=== PATIENT | male | born 1940 | race Caucasian/White ===

== ENCOUNTER 2019-04-23 08:27 | Outpatient (CLI) | payer MEDICARE, SELFPAY ==
[2019-04-23 09:10] LABS: Anion Gap 15.9 mmol/L (7-16); Blood Urea Nitrogen 15 mg/dL (7-18); Calcium 8.7 mg/dL (8.5-10.1); Carbon Dioxide 28 mmol/L (21-32); Chloride 104 mmol/L (98-108); Estimated Glomerular Filt Rate 57; Glucose 114 mg/dL (70-99); Osmolality Calculated 299 mOsm/kg (285-295); Potassium 3.9 mmol/L (3.5-5.1); Sodium 144 mmol/L (136-145)
== END 2019-04-23 08:28 | disposition home or self-care (01) ==
LOC: CHSLAB 08:30
PROVIDERS: PCP Internal Medicine
DX: I25.10 Atherosclerotic heart disease of native coronary artery without angina pectoris (principal)
CPT/HCPCS: 36415; 80048

== ENCOUNTER 2019-08-16 08:00 | Observation (INO) | payer MEDICARE, OTHER, SELFPAY ==
[2019-08-16] VITALS (10 sets, daily range): BP systolic 135–178; BP diastolic 70–86; PULSE 60–72; RESP 18–20; TEMP 36.4–36.7; O2SAT 96–100; BMI 32.1
--- NOTE | ~2019-08-16 | XR_ITS ---
XR chest 2V 08/16/2019 08:29 Indication: Chest pain. Nausea. Dyspnea. Procedure: 2 view chest Comparison: Comparison to multiple prior studies sequentially, with oldest reviewed study dated 07/2009. Findings: Status post median sternotomy for CABG. There is a prosthetic heart valve. Pacemaker leads in expected position. There are right basilar infiltrates. Small right pleural effusion versus pleura l thickening. No edema or pneumothorax. No acute osseous abnormality. Impression: 1: Linear right basilar infiltrates may represent atelectasis/scarring or less likely pneumonia. 2: Small right pleural effusion versus pleural thickening. Reviewed, dictated and finalized at location A. Impression: 1: Linear right basilar infiltrates may represent atelectasis/scarring or less likely pneumonia. 2: Small right pleural effusion versus pleural thickening.
--- NOTE | 2019-08-16 08:05 | ECG_ITS ---
Measurements Intervals [place] Rate: 63 P: 13 IL: 304 QRS: -33 QRSD: 136 T: 7 QT: 430 QTc: 443 Interpretive Statements SINUS RHYTHM WITH FIRST DEGREE AV BLOCK INTRAVENTRICULAR CONDUCTION DELAY POSSIBLE LEFT VENTRICULAR HYPERTROPHY BORDERLINE R WAVE PROGRESSION, ANTERIOR LEADS MINIMAL Q WAVES- HIGH LATERAL LEADS CONSIDER INFERIOR INFARCT, AGE INDETERMINATE ABNORMAL ECG Electronically Signed On 08-16-2019 8:29:43 CDT by Tyrone Perez D.O.
--- NOTE | 2019-08-16 08:05 | ED.CHESTPAIN ---
HPI - Chest Pain General Chief Complaint: Chest Pain Stated Complaint: AMBULANCE Time Seen by Provider: 08/16/19 08:05 Source: patient, EMS and RN notes reviewed Mode of arrival: EMS Limitations: no limitations History of Present Illness HPI narrative: patient was sitting at home this morning and had an episode of chest tightness. Seven very significant across his entire chest. Made him nauseous with some mild diaphoresis and shortness of breath. After this persisted for 30 minutes he decided to call an ambulance. The ambulance arrived his symptoms were diminishing. On arrival to the hospital symptoms were gone. MD complaint: chest heaviness Pertinent past history: coronary artery disease and [employer] Onset (ago): minute(s) (40) Timing of current episode: episodic Prior episodes: Yes Onset: during rest Pain location: substernal Pain radiation: none Severity: moderate Quality: tightness Relieving factors: nothing Exacerbating factors: nothing Associated symptoms: nausea, diaphoresis and dyspnea Treatment prior to arrival: none Risk Factors Coronary artery disease risk factors: hyperlipidemia and hypertension Related Data Home Medications Medication Instructions Recorded Confirmed acetaminophen [Tylenol Extra 500 mg PO Q6H PRN 08/16/19 08/16/19 Strength] apixaban [Eliquis] 5 mg PO BID 08/16/19 08/16/19 aspirin 81 mg PO DAILY 08/16/19 08/16/19 atorvastatin 40 mg PO HS 08/16/19 08/16/19 cetirizine 10 mg PO DAILY 08/16/19 08/16/19 losartan 50 mg PO DAILY 08/16/19 08/16/19 metoprolol succinate 25 mg PO DAILY 08/16/19 08/16/19 montelukast 10 mg PO DAILY 08/16/19 08/16/19 multivitamin [Multiple Vitamins] 1 tablet PO DAILY 08/16/19 08/16/19 omeprazole 20 mg PO DAILY 08/16/19 08/16/19 Allergies Allergy/AdvReac Type Severity Reaction Status Date / Time amoxicillin [From Augmentin] Allergy Unknown Verified 08/16/19 08:22 clavulanic acid Allergy Unknown Verified 08/16/19 08:22 [From Augmentin] clopidogrel Allergy Hives Verified 08/16/19 08:22 Penicillins Allergy Unknown Verified 08/16/19 08:22 prasugrel Allergy Hives Verified 08/16/19 08:22 Review of Systems Constitutional: Constitutional: Denies chills, Denies fever(s) and Denies weakness Eyes: Eyes: Reports no additional eye complaints ENT: Reports system reviewed and no additional complaints, except as documented Cardiovascular: Cardiovascular: Reports as per HPI Respiratory: Respiratory: Denies cough and Denies wheezing Gastrointestinal: Gastrointestinal: Denies heartburn, Denies diarrhea and Denies vomiting Genitourinary: Genitourinary: Reports no additional male genitourinary complaints Musculoskeletal: Musculoskeletal: Reports no additional musculoskeletal complaints Integumentary/Breasts: Skin/Breast: Reports system reviewed and no additional complaints, except as docu Neurologic: Reports system reviewed and no additional complaints, except as documented Psychiatric: Psychiatric: Reports no additional psychiatric complaints Endocrine: Endocrine: Reports no additional endocrine complaints [facility] Past Medical History Medical History (Updated 08/16/19 @ 12:20 by TOM Moseley-C) Atrial fibrillation BPH loc w urin obs/LUTS Carotid artery stenosis Coronary artery disease GERD (gastroesophageal reflux disease) Hyperlipidemia Hypertension Osteoarthritis Surgical History Surgical History (Updated 08/16/19 @ 08:31 by Reno Olguin MD) Aortic valve replaced Pacemaker Social History Social History (Updated 08/16/19 @ 08:39 by Reno Olguin MD) Smoking status: Never smoker Alcohol intake: former Drinks per week: 1 Substance use: never Substance use type: does not use Gender identity (if verbalized by the patient): Male Sexual Orientation (if Verbalized by the Patient): Straight or Heterosexual Spiritual care concerns: No Exam Const: General: healthy appearing, no acute distress and alert Nutritional A
[2019-08-16] MEDS: ASPIRIN 81 MG CHEWABLE TABLET 324 MG PO (08:16)
[2019-08-16 08:25] LABS: Basophils Absolute Auto 0.02 K/mm3 (0.00-0.10); Basophils Percent Auto 0.4 % (0.0-1.0); Eosinophils Percent Auto 1.9 % (1.0-6.0); Hematocrit 45.1 % (37.0-46.0); Hemoglobin 15.7 g/dL (12.4-15.3); Immature Granulocyte Absolute 0.02 K/mm3 (0.00-0.00); Immature Granulocyte Percent A 0.4 % (0.0-0.0); Lymphocytes Absolute Auto 0.84 K/mm3 (1.10-4.50); Mean Corpuscular HGB Conc 34.8 g/dL (32.0-36.0); Mean Corpuscular Volume 91.9 fL (78.0-102.0); Mean Platelet Volume 10.1 fl (8.7-11.0); Monocytes Absolute Auto 0.29 K/mm3 (0.10-0.90); Monocytes Percent Auto 5.5 % (2.0-11.0); Neutrophils Percent Auto 75.8 % (50.0-70.0); Platelet Count Result 124 K/mm3 (150-420); Red Blood Count 4.91 M/mm3 (4.70-6.10); Red Cell Distribution Width 13.6 % (11.6-14.4); White Blood Count 5.3 K/mm3 (4.8-10.8)
[2019-08-16 08:39] LABS: INR 1.1; Prothrombin Time 11.4 Seconds (9.64-11.0)
[2019-08-16 08:43] LABS: Alanine Aminotransferase 56 U/L (16-63); Albumin Level 3.7 g/dL (3.4-5.0); Alkaline Phosphatase 80 U/L (46-116); Anion Gap 11.2 mmol/L (7-16); Aspartate Amino Transferase 67 U/L (15-37); Bilirubin,Total 0.8 mg/dL (0.00-1.00); Blood Urea Nitrogen 15 mg/dL (7-18); Calcium 8.6 mg/dL (8.5-10.1); Carbon Dioxide 30 mmol/L (21-32); Chloride 106 mmol/L (98-108); Estimated CRCL calculation 63 ml/min; Estimated Glomerular Filt Rate > 60; Glucose 133 mg/dL (70-99); Osmolality Calculated 298 mOsm/kg (285-295); Potassium 4.2 mmol/L (3.5-5.1); Sodium 143 mmol/L (136-145)
[2019-08-16 08:45] LABS: CRP 0.8 mg/dL (0.0-0.9); Troponin I 0.03 ng/mL (0.00-0.056)
--- NOTE | 2019-08-16 08:51 | PC.NURSE ---
Pt. resting, no c/o, ERP wishes to speak c pts. movie shot camera operator Dr. Zain Burgess, movie shot camera operator at [place]. Call placed to cardiology office for Dr. Burgess.
--- NOTE | 2019-08-16 09:07 | PC.NURSE ---
Awaiting call back from Oncall cardio Dr. Crespo at [place].
--- NOTE | 2019-08-16 09:24 | PC.NURSE ---
ERP spoke c Dr. Crespo, then spoke c pt. Orders to place for obs. and more tests, transfer then if needed. Pt. agreeable to plan.
--- NOTE | 2019-08-16 11:51 | PM.IMHP ---
H&P: HPI History of Present Illness Chief complaint: chest tightness <ALEXX Moseley - Last Filed: 08/16/19 12:28> Narrative: Rufus Cook is a 79 year old male That presented to the ED today complaining of chest pain. Patient has a past medical history of AFib, BPH,GERD coronary artery stenosis, coronary artery disease, hyperlipidemia, hypertension ,osteoporosis, pacemaker and history aortic valve replacement. according to patient while eating breakfast this morning he started experiencing chest pain/ chest discomfort he also became short of breath, diaphoretic and nauseated. he also noted it only lasted for 30 minutes. EMS was called, on their arrival his symptoms had resolved. he does see a electric motor repairer at [facility], - [phone]. patient has not had any chest pain since arrival to the ED. our ED doctor, Dr. Fernandez contacted his electric motor repairer at [facility]. His electric motor repairer gave the patient the option of transferring to [place] or remain here at this facility and rule out a NV. patient chose to remain here for observation patient noted that he has not ever experienced this before. He also noted that he has nitro pills that he has never used, he believes that they are in [place] purse[place] [address], 60, 18, 97.7 and 96% RA.patient troponin was negative. EKG indicated sinus rhythm with first-degree AV block, his chest x-ray indicated Linear right basilar infiltrates may represent atelectasis/scarring or less likely pneumonia. his CRP was within limits. patient will remain overnight with repeat labs and the EKG to rule out a NV. he is being admitted for chest pain, he will be in observation overnight. if night is uneventful patient discharged tomorrow. Patient able to tolerate all meals , ambulate at baseline. at this time atient denies SOB, CP, palpitation, extremity numbness, lightheadness, dizziness, constipation, diarrhea, chills or fever. <ALEXX Moseley - Last Filed: 08/16/19 12:28> Review of Systems Constitutional: Constitutional: Denies chills, Denies fever(s), Denies headache(s), Denies lethargy and Reports other ( diaphoretic) <MARSHA MoseleyC - Last Filed: 08/16/19 12:28> Cardiovascular: Cardiovascular: Reports chest pain, Reports chest pain at rest, Reports chest pain with activity, Denies lightheadedness and Reports dyspnea <[facility] - Last Filed: 08/16/19 12:28> Respiratory: Respiratory: Denies cough, Denies pain with cough and Reports dyspnea <[facility] - Last Filed: 08/16/19 12:28> Gastrointestinal: Gastrointestinal: Denies abdominal pain, Denies heartburn, Denies diarrhea, Denies loose stools, Reports nausea and Denies vomiting <[facility] - Last Filed: 08/16/19 12:28> Genitourinary: Genitourinary: Reports no additional male genitourinary complaints and Denies hematuria <Kanwal Mace [facility] - Last Filed: 08/16/19 12:28> Musculoskeletal: Musculoskeletal: Reports no additional musculoskeletal complaints, Denies numbness, Denies radiating pain into limb and Denies tingling <Kanwal Mace [facility] Last Filed: 08/16/19 12:28> Integumentary/Breasts: Skin/Breast: Reports system reviewed and no additional complaints, except as docu <Kanwal Mace [facility] - Last Filed: 08/16/19 12:28> Neurologic: Denies confusion, Denies vertigo, Denies dizziness, Denies syncope, Denies headache(s), Denies lack of coordination and Denies loss of vision <[facility] - Last Filed: 08/16/19 12:28> Psychiatric: Psychiatric: Reports no additional psychiatric complaints, Denies confusion, Denies depression and Denies memory loss <[facility] - Last Filed: 08/16/19 12:28> Endocrine: Endocrine: Reports no additional endocrine complaints <Kanwal Mace [facility] - Last Filed: 08/16/19 12:28> Hematologic/Lymphatic: Hematologic/Lymphatic: Reports no additional hematologic/lymphatic complaints
[2019-08-16 12:41] LABS: Cholesterol 82 mg/dL (0-200); HDL Direct 27 mg/dL (40-60); LDL Cholesterol Calculated 32 mg/dL (<130); Triglycerides 113 mg/dL (0-150)
[2019-08-16 14:55] LABS: Troponin I < 0.02 ng/mL (0.00-0.056)
[2019-08-16 17:40] LABS: Troponin I < 0.02 ng/mL (0.00-0.056)
[2019-08-16] MEDS: ATORVASTATIN 40 MG TABLET PO (21:04)
[2019-08-16] MEDS: MELATONIN 5 MG TABLET PO (21:04)
[2019-08-17] VITALS: BP 136/60; PULSE 60; RESP 20; TEMP 36.4; O2SAT 95
--- NOTE | 2019-08-17 00:12 | PC.NURSE ---
Telemetry continues. Denied chest pain.
[2019-08-17 04:00] VITALS: PULSE 60
[2019-08-17 04:28] VITALS: BP 147/76; PULSE 60; RESP 20; TEMP 36.2; O2SAT 95
--- NOTE | 2019-08-17 04:30 | PC.NURSE ---
Telemetry continues. Denies chest pain.
[2019-08-17 05:25] LABS: Hematocrit 43.6 % (37.0-46.0); Hemoglobin 15.2 g/dL (12.4-15.3); Mean Corpuscular HGB Conc 34.9 g/dL (32.0-36.0); Mean Corpuscular Volume 91.8 fL (78.0-102.0); Mean Platelet Volume 10.5 fl (8.7-11.0); Platelet Count Result 123 K/mm3 (150-420); Red Blood Count 4.75 M/mm3 (4.70-6.10); Red Cell Distribution Width 13.7 % (11.6-14.4); White Blood Count 5.8 K/mm3 (4.8-10.8)
[2019-08-17 05:42] LABS: Alanine Aminotransferase 57 U/L (16-63); Albumin Level 3.5 g/dL (3.4-5.0); Alkaline Phosphatase 65 U/L (46-116); Anion Gap 10.2 mmol/L (7-16); Aspartate Amino Transferase 38 U/L (15-37); Bilirubin,Total 0.9 mg/dL (0.00-1.00); Blood Urea Nitrogen 13 mg/dL (7-18); Calcium 8.7 mg/dL (8.5-10.1); Carbon Dioxide 29 mmol/L (21-32); Chloride 106 mmol/L (98-108); Estimated CRCL calculation 66 ml/min; Estimated Glomerular Filt Rate > 60; Glucose 103 mg/dL (70-99); Magnesium 1.9 mg/dL (1.8-2.4); Osmolality Calculated 292 mOsm/kg (285-295); Potassium 4.2 mmol/L (3.5-5.1); Sodium 141 mmol/L (136-145); Total Protein 6.4 g/dL (6.4-8.2)
[2019-08-17 08:00] VITALS: BP 166/74; PULSE 60; PULSE 64; RESP 18; TEMP 36.6; O2SAT 94
--- NOTE | 2019-08-17 08:00 | ECG_ITS ---
Measurements Intervals [place] Rate: 59 P: 119 SD: 357 QRS: -30 QRSD: 123 T: -7 QT: 452 QTc: 451 Interpretive Statements ELECTRONIC ATRIAL PACEMAKER MINIMAL Q WAVES- HIGH LATERAL LEADS INFERIOR INFARCT, AGE INDETERMINATE ABNORMAL ECG Electronically Signed On 08-17-2019 8:34:25 CDT by Tyrone Perez D.O.
[2019-08-17] MEDS: LORATADINE 10 MG TABLET PO (09:07)
[2019-08-17] MEDS: ASPIRIN 81 MG CHEWABLE TABLET PO (09:07)
[2019-08-17 09:08] VITALS: PULSE 60
[2019-08-17] MEDS: MULTIVITAMINS THERAPEUTIC TAB (*BKC) 1 TABLET PO (09:08)
[2019-08-17] MEDS: LOSARTAN POTASSIUM 50 MG TABLET PO (09:08)
[2019-08-17] MEDS: MONTELUKAST SODIUM 10 MG TABLET PO (09:08)
[2019-08-17] MEDS: PANTOPRAZOLE 40 MG TABLET PO (09:08)
[2019-08-17] MEDS: METOPROLOL SUCCINATE EXT REL 25 MG TABCR PO (09:08)
--- NOTE | 2019-08-17 09:59 | PC.NURSE ---
Patient denies pain, nausea, dizziness, chest pressure and tightness.
--- NOTE | 2019-08-17 10:52 | P.DS_ITS ---
DS: Admitting Diagnosis Admitting Diagnosis Admitting Diagnosis: Chest pain, unspecified <Kanwal MaceALEXX - Last Filed: 08/17/19 10:57> DS: Discharge Diagnosis Discharge Diagnosis (1) Chest pain: Qualifiers: Chest pain type: unspecified Qualified Code(s): R07.9 - C hest pain, unspecified <Kanwal MaceALEXX - Last Filed: 08/17/19 10:57> Code(s): R07.9 - Chest pain, unspecified <Kanwal MaceALEXX - Last Filed: 08/17/19 10:57> Status: Acute <Kanwal MaceTOMCecilioEarnestine - Last Filed: 08/17/19 10:57> Assessment and Plan: * not believed to be cardiac related * resolved * troponin negative x3 * EKG indicates sinus rhythm with first-degree block, repeat EKG electronic atrial pacemaker * will discharge patient with prescription of nitro and instructions * patient sees cardiology at [facility] kai Bartholomew consulted patient's seat cover installer. seat cover installer office will call patient to schedule an appoint on appointment for possible repeat stress test or cardiac catheterization * chest x-ray indicates Linear right basilar infiltrates may represent atelectasis/scarring or less likely pneumonia and Small right pleural effusion versus pleural thickening. * pacemaker to the left chest <Stephenchris BryanALEXX Minor - Last Filed: 08/17/19 10:57> (2) Atrial fibrillation: Code(s): I48.91 - Unspecified atrial fibrillation <Stephenchris BryanALEXX Minor - Last Filed: 08/17/19 10:57> Status: Acute <Kanwal AdamsALEXX Minor - Last Filed: 08/17/19 10:57> Assessment and Plan: * controlled, * continue Eliquis and metoprolol * patient seat cover installer consulted <ALEXX Moseley - Last Filed: 08/17/19 10:57> (3) Coronary artery disease: Code(s): I25.10 - Atherosclerotic heart disease of [place] coronary artery without angina pectoris <ALEXX Moseley - Last Filed: 08/17/19 10:57> Status: Acute <ALEXX Moseley - Last Filed: 08/17/19 10:57> Assessment and Plan: * continue statins <ALEXX Moseley - Last Filed: 08/17/19 10:57> (4) Hypertension: Code(s): I10 - Essential (primary) hypertension <MARSHA MoseleyC - Last Filed: 08/17/19 10:57> Status: Acute <ALEXX Moseley - Last Filed: 08/17/19 10:57> Assessment and Plan: * blood pressure is stable * continue losartan metoprolol <TOM Moseley-Earnestine - Last Filed: 08/17/19 10:57> (5) Hyperlipidemia: Code(s): E78.5 - Hyperlipidemia, unspecified <ALEXX Moseley - Last Filed: 08/17/19 10:57> Status: Acute <ALEXX Moseley - Last Filed: 08/17/19 10:57> Assessment and Plan: * continue statins <MARSHA MoseleyC - Last Filed: 08/17/19 10:57> (6) GERD (gastroesophageal reflux disease): Code(s): K21.9 - Gastro-esophageal reflux disease without esophagitis <ALEXX Moseley - Last Filed: 08/17/19 10:57> Status: Acute <ALEXX Moseley - Last Filed: 08/17/19 10:57> Assessment and Plan: * started Protonix <ALEXX Moseley - Last Filed: 08/17/19 10:57> DS: Summary Hospital Course Hospital Course: H&P from 08/16/2019 Rufus Cook is a 79 year old male That presented to the ED today complaining of chest pain. Patient has a past medical history of AFib, BPH,GERD coronary artery stenosis, coronary artery disease, hyperlipidemia, hypertension ,osteoporosis, pacemaker and history aortic valve re
--- NOTE | 2019-08-17 10:52 | PM.DS ---
DS: Admitting Diagnosis Admitting Diagnosis Admitting Diagnosis: Chest pain, unspecified <ALEXX Moseley - Last Filed: 08/17/19 10:57> DS: Discharge Diagnosis Discharge Diagnosis (1) Chest pain: Qualifiers: Chest pain type: unspecified Qualified Code(s): R07.9 - Chest pain, unspecified <Stephenchris BryanALEXX Minor - Last Filed: 08/17/19 10:57> Code(s): R07.9 - Chest pain, unspecified <ALEXX Moseley - Last Filed: 08/17/19 10:57> Status: Acute <Kanwal BryanALEXX Minor - Last Filed: 08/17/19 10:57> Assessment and Plan: not believed to be cardiac related resolved troponin negative x3 EKG indicates sinus rhythm with first-degree block, repeat EKG electronic atrial pacemaker will discharge patient with prescription of nitro and instructions patient sees cardiology at [facility]. kai Bartholomew consulted patient's screwdown operator. screwdown operator office will call patient to schedule an appoint on appointment for possible repeat stress test or cardiac catheterization chest x-ray indicates Linear right basilar infiltrates may represent atelectasis/scarring or less likely pneumonia and Small right pleural effusion versus pleural thickening. pacemaker to the left chest <ALEXX Moseley - Last Filed: 08/17/19 10:57> (2) Atrial fibrillation: Code(s): I48.91 - Unspecified atrial fibrillation <ALEXX Moseley - Last Filed: 08/17/19 10:57> Status: Acute <ALEXX Moseley - Last Filed: 08/17/19 10:57> Assessment and Plan: controlled, continue Eliquis and metoprolol patient screwdown operator consulted <ALEXX Moseley - Last Filed: 08/17/19 10:57> (3) Coronary artery disease: Code(s): I25.10 - Atherosclerotic heart disease of [place] coronary artery without angina pectoris <ALEXX Moseley - Last Filed: 08/17/19 10:57> Status: Acute <ALEXX Moseley - Last Filed: 08/17/19 10:57> Assessment and Plan: continue statins <ALEXX Moseley - Last Filed: 08/17/19 10:57> (4) Hypertension: Code(s): I10 - Essential (primary) hypertension <ALEXX Moseley - Last Filed: 08/17/19 10:57> Status: Acute <ALEXX Moseley - Last Filed: 08/17/19 10:57> Assessment and Plan: blood pressure is stable continue losartan metoprolol <ALEXX Moseley - Last Filed: 08/17/19 10:57> (5) Hyperlipidemia: Code(s): E78.5 - Hyperlipidemia, unspecified <ALEXX Moseley - Last Filed: 08/17/19 10:57> Status: Acute <ALEXX Moseley - Last Filed: 08/17/19 10:57> Assessment and Plan: continue statins <ALEXX Moseley - Last Filed: 08/17/19 10:57> (6) GERD (gastroesophageal reflux disease): Code(s): K21.9 - Gastro-esophageal reflux disease without esophagitis <ALEXX Moseley - Last Filed: 08/17/19 10:57> Status: Acute <ALEXX Moseley - Last Filed: 08/17/19 10:57> Assessment and Plan: started Protonix <ALEXX Moseley - Last Filed: 08/17/19 10:57> DS: Summary Hospital Course Hospital Course: H&P from 08/16/2019 Rufus Cook is a 79 year old male That presented to the ED today complaining of chest pain. Patient has a past medical history of AFib, BPH,GERD coronary artery stenosis, coronary artery disease, hyperlipidemia, hypertension ,osteoporosis, pacemaker and history aortic valve replacement. according to patient while eating breakfast this morning he started experiencing chest pain/ chest discomfort he also became short of breath, diaphoretic and nauseated. he also noted it only lasted for 30 minutes. EMS was called, on their arrival his symptoms had resolved. he does see a screwdown operator at [facility], - [phone]. kishore
--- NOTE | 2019-08-18 08:39 | PM.EVENT ---
Event Note Event Note Event Note: For this patient encounter, I reviewed Kanwal Mace's documentation, treatment plan, and medical decision making; and I had [id number] time with this patient.
== END 2019-08-17 11:59 | disposition home or self-care (01) ==
LOC: CHSED 09:27 → CHS2ND 09:45
PROVIDERS: Nurse Practitioner; Admitting Provider Emergency Medicine; Emergency Provider Emergency Medicine; PCP Internal Medicine; Visit Provider Emergency Medicine
DX: R07.9 Chest pain, unspecified (principal); I25.10 Atherosclerotic heart disease of native coronary artery without angina pectoris; I48.20 Chronic atrial fibrillation, unspecified; K21.9 Gastro-esophageal reflux disease without esophagitis; E78.5 Hyperlipidemia, unspecified; I10 Essential (primary) hypertension; I65.29 Occlusion and stenosis of unspecified carotid artery; N40.1 Benign prostatic hyperplasia with lower urinary tract symptoms; Z95.0 Presence of cardiac pacemaker; Z95.2 Presence of prosthetic heart valve
CPT/HCPCS: 36415; 71046; 80053; 80061; 83735; 84484; 85025; 85027; 85610; 86140; 93005; 99285; A9270; G0378

== ENCOUNTER 2021-02-02 09:44 | Outpatient (CLI) | payer MEDICARE, SELFPAY ==
[2021-02-02 10:50] LABS: Influenza A QL RT-PCR Negative (Negative); Influenza B QL RT-PCR Negative (Negative); SARS-CoV-2 RNA PCR Negative (Negative)
== END 2021-02-02 09:45 | disposition home or self-care (01) ==
LOC: CHSLAB 09:47
PROVIDERS: PCP Internal Medicine; Visit Provider Internal Medicine
DX: J06.9 Acute upper respiratory infection, unspecified (principal); Z20.822 Contact with and (suspected) exposure to COVID-19
CPT/HCPCS: 87502; C9803; U0003; U0005

== ENCOUNTER 2021-07-22 07:51 | Emergency (ER) | payer MEDICARE, OTHER, SELFPAY ==
--- NOTE | ~2021-07-22 | XR_ITS ---
XR chest 1V portable DATE: 07/22/2021 09:01 INDICATION: Cough for 4 days TECHNIQUE: Portable upright AP views on 07/22/2021 at 0902 hours COMPARISON: 08/15/2021 view chest FINDINGS: Chronic discoid change at the right lung base and chronic blunting of the right costophreni c angle. No pulmonary consolidation or pleural effusion or pulmonary vascular congestion or pneumotho rax is detected. There is old pulmonary granulomatous disease. Normal heart size. Left-sided dual-lead pacemaker with leads overlying right atrium and right ventric le. Status post sternotomy. Aortic calcification and mild tortuosity. IMPRESSION: Mild chronic discoid scarring at the right lung base and chronic mild right costophrenic angle blunting No active cardiopulmonary disease is evident Old pulmonary granulomatous disease Status post sternotomy Dual-lead left-sided pacemaker Aortic atherosclerosis Reviewed, dictated and finalized at location A. IMPRESSION: Mild chronic discoid scarring at the right lung base and chronic mi ld right costophrenic angle blunting No active cardiopulmonary disease is evident Old pulmonary granulomatous disease Status post sternotomy Dual-lead left-sided pacemaker Aortic atherosclerosis
[2021-07-22 08:26] VITALS: BP 132/53; PULSE 69; RESP 16; TEMP 36.8; O2SAT 94
[2021-07-22] MEDS: guaiFENesin 12 HR 600 MG TABCR PO (09:17)
[2021-07-22 09:25] LABS: Influenza A QL RT-PCR Negative (Negative); Influenza B QL RT-PCR Negative (Negative); SARS-CoV-2 RNA PCR Negative (Negative)
--- NOTE | 2021-07-22 10:29 | ED.URI ---
HPI - URI/Sore Throat General Chief Complaint: Upper Respiratory Infection Stated Complaint: fever/fatigue/cough/sore throat Time Seen by Provider: 07/22/21 07:55 Source: patient and RN notes reviewed Mode of arrival: ambulatory Limitations: no limitations History of Present Illness MD elicited complaint: fever, cough, sore throat, nasal congestion and sinus pain Onset (ago): day(s) (2) Consistency: constant Severity: mild Pain scale (0-10): 4 Relieving factors: OTC cold medicine Associated symptoms: fever, voice changes, sore throat and cough Related Data Home Medications Medication Instructions Recorded Confirmed acetaminophen 500 mg tablet 500 mg PO Q6H PRN Pain 08/16/19 07/22/21 (Tylenol Extra Strength) apixaban 5 mg tablet (Eliquis) 5 mg PO BID 08/16/19 07/22/21 aspirin 81 mg chewable tablet 81 mg PO DAILY 08/16/19 07/22/21 atorvastatin 40 mg tablet 40 mg PO HS 08/16/19 07/22/21 cetirizine 10 mg tablet 10 mg PO DAILY 08/16/19 07/22/21 losartan 100 mg tablet 50 mg PO DAILY 08/16/19 07/22/21 metoprolol succinate 25 mg 25 mg PO DAILY 08/16/19 07/22/21 tablet,extended release 24 hr montelukast 10 mg tablet 10 mg PO DAILY 08/16/19 07/22/21 multivitamin (Multiple Vitamins 1 tablet PO DAILY 08/16/19 07/22/21 tablet) omeprazole 20 mg capsule,delayed 20 mg PO DAILY 08/16/19 07/22/21 release Allergies Allergy/AdvReac Type Severity Reaction Status Date / Time amoxicillin [From Augmentin] Allergy Hives Verified 07/22/21 08:31 clavulanic acid Allergy Hives Verified 07/22/21 08:31 [From Augmentin] clopidogrel Allergy Hives Verified 07/22/21 08:31 Penicillins Allergy Hives Verified 07/22/21 08:31 prasugrel Allergy Hives Verified 07/22/21 08:31 Review of Systems Review of Systems: All systems reviewed & are unremarkable except as noted in HPI and below Constitutional: Constitutional: Reports no additional constitutional complaints Eyes: Eyes: Reports no additional eye complaints ENT: Reports system reviewed and no additional complaints, except as documented Cardiovascular: Cardiovascular: Reports no additional cardiovascular complaints Respiratory: Respiratory: Reports no additional respiratory complaints Gastrointestinal: Gastrointestinal: Reports no additional gastrointestinal complaints Musculoskeletal: Musculoskeletal: Reports no additional musculoskeletal complaints Integumentary/Breasts: Skin/Breast: Reports system reviewed and no additional complaints, except as docu Neurologic: Reports system reviewed and no additional complaints, except as documented Psychiatric: Psychiatric: Reports no additional psychiatric complaints Endocrine: Endocrine: Reports no additional endocrine complaints Hematologic/Lymphatic: Hematologic/Lymphatic: Reports no additional hematologic/lymphatic complaints Allergic/Immunologic: Allergic/Immunologic: Reports no additional allergic/immunologic complaints PMFSH Past Medical History Medical History (Updated 08/13/21 @ 10:45 by Marie Wagner MD) Atrial fibrillation BPH loc w urin obs/LUTS Carotid artery stenosis Coronary artery disease GERD (gastroesophageal reflux disease) Hyperlipidemia Hypertension Osteoarthritis Sinusitis Surgical History Surgical History (Updated 08/16/19 @ 08:31 by Reno Olguin MD) Aortic valve replaced Pacemaker Social History Social History (Updated 08/16/19 @ 08:39 by Reno Olguin MD) Smoking status: Never smoker Alcohol intake: former Drinks per week: 1 Substance use: never Substance use type: does not use Gender identity (if verbalized by the patient): Male Sexual Orientation (if Verbalized by the Patient): Straight or Heterosexual Spiritual care concerns: No Exam Const: General: healthy appearing and no acute distress Nutritional Appearance: well nourished Orientation/consciousness: patient oriented x3 Limitations: no limitations HENMT: Head: normal to inspection Ears: exter
[2021-07-22 10:38] VITALS: BP 129/55; PULSE 79; RESP 17; TEMP 36.9; O2SAT 95
== END 2021-07-22 10:43 | disposition home or self-care (01) ==
PROVIDERS: Emergency Provider Emergency Medicine; PCP Internal Medicine
DX: J06.9 Acute upper respiratory infection, unspecified (principal); J32.9 Chronic sinusitis, unspecified; Z20.822 Contact with and (suspected) exposure to COVID-19; I48.91 Unspecified atrial fibrillation; I25.10 Atherosclerotic heart disease of native coronary artery without angina pectoris; K21.9 Gastro-esophageal reflux disease without esophagitis; E78.5 Hyperlipidemia, unspecified; I10 Essential (primary) hypertension
CPT/HCPCS: 71045; 87081; 87502; 87880; 99283; A9270; C9803; U0003; U0005

== ENCOUNTER 2021-08-13 07:21 | Outpatient (CLI) | payer MEDICARE, OTHER, SELFPAY ==
--- NOTE | ~2021-08-13 | CT_ITS ---
EXAMINATION: CT sinus wo con DATE: 08/13/2021 07:42 INDICATION: Chronic sinusitis. TECHNIQUE: Computed tomography (CT) of the paranasal sinuses was performed without intravenous contra st. The dose-length product was 278.92 mGy-cm. Automated exposure control and iterative reconstructio n technique were employed. COMPARISON: None FINDINGS: There is mild mucosal thickening of the maxillary sinuses. Small mucous retention cyst left maxillary antrum. No air-fluid levels. No mucoperiosteal reaction. Rightward nasal septal deviation. Ostiomeatal units are patent. Mastoids are pneumatized without effusion. Mild intracranial atheroscl erosis. No midline shift. IMPRESSION: 1. Mild maxillary sinus disease. Reviewed, dictated and finalized at location B.
== END 2021-08-13 07:22 | disposition home or self-care (01) ==
LOC: CHSIMG 07:22
PROVIDERS: PCP Internal Medicine; Visit Provider Internal Medicine
DX: J32.9 Chronic sinusitis, unspecified (principal)
CPT/HCPCS: 70486

== ENCOUNTER 2022-05-12 09:04 | Emergency (ER) | payer MEDICARE, OTHER, SELFPAY ==
[2022-05-12] VITALS (47 sets, daily range): BP systolic 106–157; BP diastolic 56–79; PULSE 54–67; RESP 11–34; TEMP 36.3–36.4; O2SAT 93–97
--- NOTE | ~2022-05-12 | CT_ITS ---
EXAMINATION: CTA neck DATE: 05/12/2022 11:04 INDICATION: Near syncope. TECHNIQUE: Computed tomographic angiography (CTA) of the neck was performed with 100 mL Omnipaque-350 intravenous contrast. Automated exposure control and iterative reconstruction technique were employe d. The dose-length product was 691.39 mGy-cm. Maximum intensity projection 3D-reconstructions were cr eated by the technologist on a separate workstation. COMPARISON: None. FINDINGS: There is mild atelectasis in the lungs. Calcified left hilar lymph nodes are consistent wit h old granulomatous disease. In left posterior neck, there is a 3.4 x 1.3 cm mass of fat with eccentr ic area fat stranding. There is severe stenosis of proximal right vertebral artery and moderate steno sis of proximal left vertebral artery. The vertebral arteries are codominant. There is plaque in prox imal right internal carotid artery. There is 70% stenosis of the proximal right internal carotid remberto ry relative to normal distal artery lumen diameter (NASCET criteria). There is irregularity of the po sterior medial wall of left common carotid artery. There is hematoma around the left common carotid a rtery. There is a stent in left common carotid artery and internal carotid artery. There is crimping of the stent with narrowing of the lumen to 1.4 x 0.7 mm. There are no pathologically enlarged lymph nodes. Partially visualized is a left chest pacer. There is severe cervical spondylosis. IMPRESSION: 1. Injury of posteromedial wall of left common carotid artery with surrounding hematoma. 2. Stent in left common carotid artery and internal carotid artery with crimping of the stent with anjelica men severely narrowed to 1.4 x 0.7 mm. 3. 70% stenosis of the proximal right internal carotid artery relative to normal distal artery lumen diameter (NASCET criteria). 4. Severe stenosis of proximal right vertebral artery. 5. Moderate stenosis of proximal left vertebral artery. 6. 3.4 cm mass of fat in left posterior neck with fat stranding. 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 Reviewed, dictated and finalized at location A. O LEAD IMPRESSION: 1. Injury of posteromedial wall of left common carotid artery with surrounding hematoma. 2. Stent in left common carotid artery and internal carotid artery with crimpin g of the stent with lumen severely narrowed to 1.4 x 0.7 mm. 3. 70% stenosis of the proximal right internal carotid artery relative to norm al distal artery lumen diameter (NASCET criteria). 4. Severe stenosis of proximal right vertebral artery. 5. Moderate stenosis of proximal left vertebral artery. 6. 3.4 cm mass of fat in left posterior neck with fat stranding. This finding i s most likely a lipoma with inflammation, but liposarcoma cannot be excluded.
--- NOTE | 2022-05-12 09:08 | ED.GENADULT ---
HPI - General Adult General Chief complaint: Dizziness Stated complaint: dizzyness, feeling faint with head pressure Time Seen by Provider: 05/12/22 09:07 History of Present Illness HPI narrative: Ed is an 82M with a PMH of GERD, CAD, afib, HTN , OA and carotid artery stenosis s/p surgery a week ago that came in after an episode of near syncope. He got up from a chair and took a couple steps when he became lightheaded, grabbed a chair and went down. He did not lose consciousness or fall. He also denies palpitations, dyspnea and chest pain. Related Data Home Medications Medication Instructions Recorded Confirmed acetaminophen 500 mg tablet 500 mg PO Q6H PRN Pain 08/16/19 05/12/22 (Tylenol Extra Strength) apixaban 5 mg tablet (Eliquis) 5 mg PO BID 08/16/19 05/12/22 atorvastatin 40 mg tablet 40 mg PO HS 08/16/19 05/12/22 cetirizine 10 mg tablet (Zyrtec) 10 mg PO DAILY 08/16/19 05/12/22 metoprolol succinate 25 mg 25 mg PO BID 08/16/19 05/12/22 tablet,extended release 24 hr montelukast 10 mg tablet 10 mg PO DAILY 08/16/19 05/12/22 multivitamin (Multiple Vitamins 1 tablet PO DAILY 08/16/19 05/12/22 tablet) omeprazole 20 mg capsule,delayed 20 mg PO DAILY 08/16/19 05/12/22 release escitalopram oxalate 10 mg tablet 10 mg PO DAILY 05/12/22 05/12/22 isosorbide mononitrate 30 mg 30 mg PO DAILY 05/12/22 05/12/22 tablet,extended release 24 hr ticagrelor 90 mg tablet (Brilinta) 90 mg PO DAILY 05/12/22 05/12/22 Allergies Allergy/AdvReac Type Severity Reaction Status Date / Time amoxicillin [From Augmentin] Allergy Hives Verified 05/12/22 09:49 clavulanic acid Allergy Hives Verified 05/12/22 09:49 [From Augmentin] clopidogrel Allergy Hives Verified 05/12/22 09:49 Penicillins Allergy Hives Verified 05/12/22 09:49 prasugrel Allergy Hives Verified 05/12/22 09:49 Review of Systems Review of Systems: All systems reviewed & are unremarkable except as noted in HPI and below [facility] Past Medical History Medical History Atrial fibrillation BPH loc w urin obs/LUTS Carotid artery stenosis Coronary artery disease GERD (gastroesophageal reflux disease) Hyperlipidemia Hypertension Osteoarthritis Sinusitis Surgical History Surgical History Aortic valve replaced Pacemaker Social History Social History Smoking status: Never smoker Alcohol intake: former Drinks per week: 1 Substance use: never Substance use type: does not use Gender identity (if verbalized by the patient): Male Sexual Orientation (if Verbalized by the Patient): Straight or Heterosexual Spiritual care concerns: No Exam Const: General: healthy appearing and no acute distress Nutritional Appearance: well nourished Orientation/consciousness: patient oriented x3 HENMT: Head: normal to inspection Ears: external ears normal Face and sinus: normal facial exam Eyes: Conjunctivae: conjunctivae normal Pupils: Equal, round and reactive pupils present Neck: Other: Left carotid surgical excision was clean dry and intact Chest: Chest palpation & inspection: normal inspection of the chest Resp: Effort & Inspection: normal respiratory effort Auscultation: clear to auscultation bilaterally Cardio: Rate: regular rate Rhythm: regular rhythm GI: Inspection: non-distended GI Palp: Yes Soft to palpation and No Tenderness to palpation present (GI) Skin: General skin exam: normal color Neuro: General: patient oriented x3 and moves all extremities Cranial nerves: Yes Nystagmus not present Other: A few beats of lateral nystagmus on the right Extrem: Other: no deformity Psych: Mental Status: mental status grossly normal Course Course Emergency Course: Ordered labs, EKG and CTA EKG showed sinus bradycardia with a rate of 48 and non-specific T wave changes
--- NOTE | 2022-05-12 09:44 | ECG_ITS ---
Measurements Intervals [place] Rate: 48 P: -52 CT: 299 QRS: -52 QRSD: 113 T: -81 QT: 458 QTc: 412 Interpretive Statements ELECTRONIC ATRIAL PACEMAKER ELECTRONIC VENTRICULAR PACEMAKER COMPLEX INTRAVENTRICULAR CONDUCTION DELAY VOLTAGE CRITERIA FOR LVH BORDERLINE R WAVE PROGRESSION, ANTERIOR LEADS CONSIDER INFERIOR INFARCT, AGE INDETERMINATE BORDERLINE ST-T WAVE ABNORMALITY- LAT/HIGH LAT LEADS BASELINE ARTIFACT- II, III, AVR, AVL, AVF ABNORMAL ECG COMPARED TO ECG 08/17/2019 07:28:04 NO SIGNIFICANT CHANGES Electronically Signed On 05-12-2022 14:45:39 [employer] by Tyrone Perez D.O.
[2022-05-12 10:10] LABS: Basophils Absolute Auto 0.05 K/mm3 (0.00-0.10); Basophils Percent Auto 0.7 % (0.0-1.0); Eosinophils Absolute Auto 0.19 K/mm3 (0.02-0.50); Eosinophils Percent Auto 2.6 % (1.0-6.0); Hematocrit 48.6 % (37.0-46.0); Hemoglobin 16.4 g/dL (12.4-15.3); Immature Granulocyte Absolute 0.06 K/mm3 (0.00-0.00); Immature Granulocyte Percent A 0.8 % (0.0-0.0); Lymphocytes Absolute Auto 0.98 K/mm3 (1.10-4.50); Lymphocytes Percent Auto 13.2 % (18.0-42.0); Mean Corpuscular HGB Conc 33.7 g/dL (32.0-36.0); Mean Corpuscular Hemoglobin 31.3 pg (27.0-31.0); Mean Corpuscular Volume 92.7 fL (78.0-102.0); Mean Platelet Volume 10.3 fl (8.7-11.0); Monocytes Absolute Auto 0.65 K/mm3 (0.10-0.90); Monocytes Percent Auto 8.8 % (2.0-11.0); Neutrophils Absolute Auto 5.5 K/mm3 (1.7-7.2); Neutrophils Percent Auto 73.9 % (50.0-70.0); Platelet Count Result 151 K/mm3 (150-420); Red Blood Count 5.24 M/mm3 (4.70-6.10); Red Cell Distribution Width 13.9 % (11.6-14.4); White Blood Count 7.4 K/mm3 (4.8-10.8)
[2022-05-12 10:29] LABS: Alanine Aminotransferase 30 U/L (16-63); Albumin Level 3.7 g/dL (3.4-5.0); Alkaline Phosphatase 76 U/L (46-116); Anion Gap 8 mmol/L (8-16); Aspartate Amino Transferase 23 U/L (15-37); Bilirubin,Total 1.6 mg/dL (0.00-1.00); Blood Urea Nitrogen 14 mg/dL (7-18); Calcium 8.8 mg/dL (8.5-10.1); Carbon Dioxide 27 mmol/L (21-32); Chloride 105 mmol/L (98-108); Estimated CRCL calculation 52 ml/min; Estimated Glomerular Filt Rate 56; Glucose 99 mg/dL (70-99); NT Pro B Type Natriuretic Pept 278 pg/mL (0-450); Osmolality Calculated 290 mOsm/kg (285-295); Potassium 4.4 mmol/L (3.5-5.1); Sodium 140 mmol/L (136-145); Total Protein 7.5 g/dL (6.4-8.2); Troponin I 17.5 ng/L (0.00-60.4)
[2022-05-12 12:04] LABS: SARS-CoV-2 Ag Negative (Negative)
--- NOTE | 2022-05-12 18:41 | PC.NURSE ---
1700 pt moved to room for and placed in hospital bed awaiting transfer to [place] to see Dr Smith vascular surgeon [place] transfer service will up date again around 1900
--- NOTE | 2022-05-12 21:49 | PC.NURSE ---
Addendum entered by Dwayne Pierre RN 05/13/22 01:35: 0100: pt resting with eye closed 0000: pt resting with eyes closed Addendum entered by Dwayne Pierre RN 05/12/22 23:37: 2300: pt resting in bed with eyes closed Addendum entered by Dwayne Pierre RN 05/12/22 22:22: 2200: pt resting no complaints at this time. Original Note: 1900: pt resting in bed no requests at this time. 2000: pt ambulated to bathroom without assistance 2100: pt resting in bed no requests at this time.
[2022-05-13] VITALS (76 sets, daily range): BP systolic 110–139; BP diastolic 59–81; PULSE 56–77; RESP 10–24; TEMP 36.4–36.7; O2SAT 90–99
[2022-05-13] MEDS: LORATADINE 10 MG TABLET PO (06:04)
[2022-05-13] MEDS: ISOSORBIDE MONONITRATE 30 MG TAB.ER.24H PO (06:05)
[2022-05-13] MEDS: ESCITALOPRAM OXALATE 10 MG TABLET PO (06:05)
[2022-05-13] MEDS: METOPROLOL SUCCINATE EXT REL 12.5 MG TABCR PO (06:05)
[2022-05-13] MEDS: TICAGRELOR 90 MG TABLET PO (06:05)
[2022-05-13] MEDS: APIXABAN 2.5 MG TABLET 5 MG PO (06:06)
--- NOTE | 2022-05-13 07:35 | PC.NURSE ---
0705- introduced to pt. resting comfortably. updated on transfer status...awaiting bed at [facility], will call [facility] at 0800 for bed status update. pt A&Ox3. resp even and non-labored. denies feeling pain or sob. NSR noted on monitor. pt gets up from bed without difficulty and amb steadily to bathroom to void. denies dizziness when up. breakfast ordered from room with pt requests.
--- NOTE | 2022-05-13 10:14 | PC.NURSE ---
pt amb steadily to bathroom to complete personal hygiene. dental care items and bathing items provided. pt c/o sl dizziness with amb. denies sob or pain
== END 2022-05-13 15:22 | disposition home or self-care (01) ==
PROVIDERS: Emergency Provider Family Medicine; PCP Internal Medicine
DX: I65.29 Occlusion and stenosis of unspecified carotid artery (principal); I25.10 Atherosclerotic heart disease of native coronary artery without angina pectoris; I48.91 Unspecified atrial fibrillation; I10 Essential (primary) hypertension; E78.5 Hyperlipidemia, unspecified; Z79.01 Long term (current) use of anticoagulants; Z79.899 Other long term (current) drug therapy; Z20.822 Contact with and (suspected) exposure to COVID-19
CPT/HCPCS: 36415; 70498; 80053; 83880; 84484; 85025; 87426; 93005; 99284; A9270; C9803; Q9967

== ENCOUNTER 2023-02-04 14:53 | Outpatient (CLI) | payer MEDICARE, OTHER, SELFPAY ==
--- NOTE | ~2023-02-04 | XR_ITS ---
XR chest 2V 02/04/2023 15:40 Indication: Wheezing, cough and shortness of breath Procedure: 2 view chest Comparison: Comparison to multiple prior studies sequentially, with oldest reviewed study dated 11/2012. Findings: Heart size normal. Status post median sternotomy for CABG. There is chronic right basilar a telectasis/scarring. No acute osseous abnormality. There is a prosthetic heart valve. Impression: 1: Chronic right basilar atelectasis/scarring. Reviewed, dictated and finalized at location L. TEACHER Impression: 1: Chronic right basilar atelectasis/scarring.
[2023-02-04 15:30] LABS: Basophils Absolute Auto 0.04 K/mm3 (0.00-0.10); Basophils Percent Auto 0.7 % (0.0-1.0); Eosinophils Absolute Auto 0.24 K/mm3 (0.02-0.50); Eosinophils Percent Auto 4.5 % (1.0-6.0); Hematocrit 51.1 % (37.0-46.0); Hemoglobin 16.8 g/dL (12.4-15.3); Immature Granulocyte Absolute 0.01 K/mm3 (0.00-0.00); Immature Granulocyte Percent A 0.2 % (0.0-0.0); Immature Platelet Fraction Pct 4.2 % (1.0-7.0); Lymphocytes Absolute Auto 1.08 K/mm3 (1.10-4.50); Lymphocytes Percent Auto 20.1 % (18.0-42.0); Mean Corpuscular HGB Conc 32.9 g/dL (32.0-36.0); Mean Corpuscular Hemoglobin 30.7 pg (27.0-31.0); Mean Corpuscular Volume 93.4 fL (78.0-102.0); Mean Platelet Volume 10.8 fl (8.7-11.0); Monocytes Absolute Auto 0.55 K/mm3 (0.10-0.90); Monocytes Percent Auto 10.3 % (2.0-11.0); Neutrophils Absolute Auto 3.4 K/mm3 (1.7-7.2); Neutrophils Percent Auto 64.2 % (50.0-70.0); Platelet Count Result 111 K/mm3 (150-420); Red Blood Count 5.47 M/mm3 (4.70-6.10); Red Cell Distribution Width 13.8 % (11.6-14.4); White Blood Count 5.4 K/mm3 (4.8-10.8)
[2023-02-04 15:38] LABS: Anion Gap 2 mmol/L (8-16); Blood Urea Nitrogen 15 mg/dL (7-18); Calcium 9.2 mg/dL (8.5-10.1); Carbon Dioxide 36 mmol/L (21-32); Chloride 104 mmol/L (98-108); Estimated Glomerular Filt Rate 49; Glucose 90 mg/dL (70-99); Osmolality Calculated 294 mOsm/kg (285-295); Potassium 4.7 mmol/L (3.5-5.1); Sodium 142 mmol/L (136-145)
[2023-02-04 16:00] LABS: Strep Group A RT-PCR NOT DETECTED (Negative)
[2023-02-04 16:10] LABS: Influenza A QL RT-PCR Negative (Negative); Influenza B QL RT-PCR Negative (Negative); SARS-CoV-2 RNA PCR Negative (Negative)
== END 2023-02-04 14:54 | disposition home or self-care (01) ==
LOC: CHSLAB 14:56
PROVIDERS: PCP Internal Medicine; Visit Provider Internal Medicine
DX: R05.9 Cough, unspecified (principal); R91.8 Other nonspecific abnormal finding of lung field
CPT/HCPCS: 36415; 71046; 80048; 85025; 85055; 87636; 87651

== ENCOUNTER 2023-04-01 12:24 | Outpatient (CLI) | payer MEDICARE, OTHER, SELFPAY ==
--- NOTE | ~2023-04-01 | CT_ITS ---
EXAMINATION: CT cervical spine wo con DATE: 04/01/2023 13:09 INDICATION: Chronic neck pain. TECHNIQUE: Computed tomography (CT) of the cervical spine was performed without intravenous contrast. Automated exposure control and iterative reconstruction technique were employed. The dose-length pro duct was 577.08 mGy-cm. COMPARISON: None FINDINGS: There is a left posterior scalp lipoma. There are stents in the cervical carotid arteries. There is 7 degrees dextrocurvature of cervical spine. There is mild kyphosis of cervical spine. Verte bral body heights are normal. There is mildly decreased disc height at C4-C5 and moderately decreased disc height at C5-C6. The following disc levels are specifically discussed: C2-C3: There is no uncovertebral joint osteoarthritis. There is moderate right and severe left facet joint osteoarthritis. There is mild left neural foraminal stenosis. There is no central canal stenosi s. C3-C4: There is mild right and moderate left uncovertebral joint osteoarthritis. There is severe bila teral facet joint osteoarthritis. There is moderate left neural foraminal stenosis. There is mild jessica tral canal stenosis. C4-C5: There is moderate bilateral uncovertebral joint osteoarthritis. There is moderate right and se imelda left facet joint osteoarthritis. There is mild bilateral neural foraminal stenosis. There is mil d central canal stenosis. C5-C6: There is severe bilateral uncovertebral joint osteoarthritis. There is mild bilateral facet rosa int osteoarthritis. There is mild right and moderate left neural foraminal stenosis. There is mild ce ntral canal stenosis. C6-C7: There is no uncovertebral joint osteoarthritis. There is mild bilateral facet joint osteoarthr itis. There is no neural foraminal stenosis. There is no central canal stenosis. C7-T1: There is no uncovertebral joint osteoarthritis. There is moderate bilateral facet joint osteoa rthritis. There is mild bilateral neural foraminal stenosis. There is no central canal stenosis. IMPRESSION: 1. Moderate cervical spondylosis. Reviewed, dictated and finalized at location E. AND BEVERAGE CONTROLLER
--- NOTE | ~2023-04-01 | CT_ITS ---
EXAMINATION: CT brain wo con DATE: 04/01/2023 13:09 INDICATION: Headache. Chronic neck pain. TECHNIQUE: Computed tomography (CT) of the head was performed without intravenous contrast. The mA wa s adjusted according to patient size. Iterative reconstruction technique was employed. The dose-lengt h product was 577.08 mGy-cm. COMPARISON: None FINDINGS: There is no intracranial hemorrhage, acute infarction, or abnormal intracranial mass lesion . The ventricles are normal in size. There are likely changes of ocular lens replacement surgeries. T here is mild mucosal thickening in the paranasal sinuses. The mastoid air cells are normal. IMPRESSION: 1. Normal brain. Reviewed, dictated and finalized at location E. BLE CLERK IMPRESSION: 1. Normal brain.
== END 2023-04-01 12:25 | disposition home or self-care (01) ==
LOC: CHSIMG 12:25
PROVIDERS: PCP Internal Medicine; Visit Provider Internal Medicine
DX: R51.9 Headache, unspecified (principal); M54.2 Cervicalgia; M43.02 Spondylolysis, cervical region
CPT/HCPCS: 70450; 72125

== ENCOUNTER 2023-06-07 14:31 | Emergency (ER) | payer MEDICARE, OTHER, SELFPAY ==
[2023-06-07] VITALS (24 sets, daily range): BP systolic 113–186; BP diastolic 67–138; PULSE 60–83; RESP 12–27; TEMP 36.8–36.9; O2SAT 94–97
--- NOTE | ~2023-06-07 | CT_ITS ---
EXAMINATION: CTA chest PE protocol DATE: 06/07/2023 17:57 INDICATION: Chest pressure. Shortness of breath. TECHNIQUE: Computed tomography angiography (CTA) of the chest was performed with 100 mL Omnipaque-350 intravenous contrast timed to evaluate the pulmonary arteries. Coronal maximum intensity projection 3D-reconstructions were created by the technologist. Automated exposure control and iterative reconst ruction technique were employed. The dose-length product was 563.74 mGy-cm. COMPARISON: Neck CT 05/12/2022 FINDINGS: The lungs demonstrate mild atelectasis. A 7 mm nodule in right upper lobe previously measur ed 9 mm, likely benign. Calcified pulmonary nodules and calcified hilar and mediastinal lymph nodes a re consistent with old granulomatous disease. Right-sided pleural thickening is noted. No significant pleural effusion. The heart size is normal. There are coronary artery calcifications. There are angel ges of aortic valve replacement. No pericardial effusion. There is no pulmonary embolus. There are ga llstones in the gallbladder, which is distended. There is mild thoracic spondylosis. IMPRESSION: 1. No pulmonary embolus. 2. Cholelithiasis. Gallbladder distention may be secondary to fasting or acute cholecystitis. Correla te with physical exam. Reviewed, dictated and finalized at location A. IMPRESSION: 1. No pulmonary embolus. 2. Cholelithiasis. Gallbladder distention may be secondary to fasting or acute cholecystitis. Correlate with physical exam.
--- NOTE | ~2023-06-07 | XR_ITS ---
EXAMINATION: XR chest 1V portable DATE: 06/07/2023 15:04 INDICATION: Chest pain. Chest heaviness. TECHNIQUE: A single frontal view of the chest was obtained. COMPARISON: Chest 2 views 02/04/2023, CT abdomen and pelvis 01/24/2011 FINDINGS: There is mild atelectasis in the mid and lower lung zones. No pleural effusion or pneumotho rax. The heart size is normal. There is a left chest wall pacer with leads in the right atrium and ri ght ventricle. There are changes of heart valve replacement. IMPRESSION: 1. Mild atelectasis in the mid and lower lung zones. Reviewed, dictated and finalized at location A.
--- NOTE | 2023-06-07 14:39 | ECG_ITS ---
Measurements Intervals [place] Rate: 66 P: 25 MN: 290 QRS: 28 QRSD: 169 T: 34 QT: 478 QTc: 504 Interpretive Statements ATRIAL SENSE- ELECTRONIC VENTRICULAR PACEMAKER BASELINE ARTIFACT- I, II, AVR NO FURTHER INTERPRETATION IS POSSIBLE ATYPICAL ECG COMPARED TO ECG 05/12/2022 09:44:27 NO SIGNIFICANT CHANGES Electronically Signed On 06-07-2023 17:24:56 CDT by Tyrone Perez D.O.
[2023-06-07] MEDS: ASPIRIN 81 MG CHEWABLE TABLET 324 MG PO (14:53)
[2023-06-07] MEDS: ONDANSETRON INJ 4 MG/2 ML VIAL IV PUSH ×2 (15:24→16:56)
--- NOTE | 2023-06-07 15:53 | PC.NURSE ---
Patient's pressure has subsided since belching, patient denies any chest pain at this time, will hold nitro
[2023-06-07 16:14] LABS: Basophils Absolute Auto 0.03 K/mm3 (0.00-0.10); Basophils Percent Auto 0.5 % (0.0-1.0); Eosinophils Absolute Auto 0.07 K/mm3 (0.02-0.50); Eosinophils Percent Auto 1.2 % (1.0-6.0); Hematocrit 48.6 % (37.0-46.0); Immature Granulocyte Absolute 0.02 K/mm3 (0.00-0.00); Immature Granulocyte Percent A 0.3 % (0.0-0.0); Immature Platelet Fraction Pct 4.1 % (1.0-7.0); Lymphocytes Absolute Auto 0.94 K/mm3 (1.10-4.50); Lymphocytes Percent Auto 15.7 % (18.0-42.0); Mean Corpuscular HGB Conc 32.9 g/dL (32-36); Mean Corpuscular Hemoglobin 30.2 pg (27.0-31.0); Mean Corpuscular Volume 91.7 fL (78.0-102.0); Mean Platelet Volume 10.7 fl (8.7-11.0); Monocytes Absolute Auto 0.45 K/mm3 (0.10-0.90); Monocytes Percent Auto 7.5 % (2.0-11.0); Neutrophils Absolute Auto 4.49 K/mm3 (1.70-7.20); Neutrophils Percent Auto 74.8 % (50.0-70.0); Platelet Count Result 98 K/mm3 (150-420); Red Cell Distribution Width 14.2 % (11.6-14.4)
[2023-06-07] MEDS: MAG HYDROX/ALUMINUM HYD/SIMETH 30 ML, PHENobarb/HYOSCY/ATROPINE/SCOP 32.4 MG, LIDOCAINE... PO (16:15)
[2023-06-07 16:35] LABS: Alanine Aminotransferase 63 U/L (16-63); Albumin Level 3.9 g/dL (3.4-5.0); Alkaline Phosphatase 98 U/L (46-116); Anion Gap 9 mmol/L (4-12); Aspartate Amino Transferase 93 U/L (15-37); Bilirubin,Total 1.8 mg/dL (0.00-1.00); Blood Urea Nitrogen 20 mg/dL (7-18); Calcium 8.9 mg/dL (8.5-10.1); Carbon Dioxide 28 mmol/L (21-32); Chloride 106 mmol/L (98-108); Estimated Glomerular Filt Rate 55; Glucose 106 mg/dL (70-99); Lipase 74 U/L (16-77); NT Pro B Type Natriuretic Pept 256 pg/mL (0-450); Osmolality Calculated 298 mOsm/kg (285-295); Potassium 4.3 mmol/L (3.5-5.1); Sodium 143 mmol/L (136-145); Total Protein 6.9 g/dL (6.4-8.2); Troponin I 20.9 ng/L (0.00-60.4)
[2023-06-07 16:41] LABS: INR 1.1; Partial Thromboplastin Time 28.7 Sec (23.9-30.70)
[2023-06-07 16:43] LABS: D Dimer 0.53 mg/L (0.19-0.50)
--- NOTE | 2023-06-07 16:44 | PC.NURSE ---
Per lab patient's ddimer is elevated at 0.53, erp made aware.
--- NOTE | 2023-06-07 18:33 | ED.NAVMDI ---
HPI - Nausea/Vomiting/Diarrhea General Chief complaint: Nausea/Vomiting/Diarrhea Stated complaint: INDIGESTION/CHEST PRESSURE Time Seen by Provider: 06/07/23 14:33 Source: patient Mode of arrival: ambulatory Limitations: no limitations History of Present Illness HPI Narrative: this is a 83-year-old male who presents with a right upper quadrant abdominal pain described as some right-sided chest pressure with some dyspnea with no fever chills does have nausea vomiting, with no dysuria no flank pain no hematuria. The patient has a history of open-heart surgery secondary to valve replacement, recently had a cardiac catheterization approximately 6 weeks ago with some what they describe his normal cardiac heart vessels. MD elicited complaint: nausea and vomiting Onset (ago): day(s) Location of pain: chest, epigastric and RLQ Radiation: RUQ Severity: mild Quality: aching Related Data Home Medications Medication Instructions Recorded Confirmed acetaminophen 500 mg tablet 500 mg PO Q6H PRN Pain 08/16/19 05/12/22 (Tylenol Extra Strength) apixaban 5 mg tablet (Eliquis) 5 mg PO BID 08/16/19 05/12/22 atorvastatin 40 mg tablet 40 mg PO HS 08/16/19 05/12/22 cetirizine 10 mg tablet (Zyrtec) 10 mg PO DAILY 08/16/19 05/12/22 metoprolol succinate 25 mg 25 mg PO BID 08/16/19 05/12/22 tablet,extended release 24 hr montelukast 10 mg tablet 10 mg PO DAILY 08/16/19 05/12/22 multivitamin (Multiple Vitamins 1 tablet PO DAILY 08/16/19 05/12/22 tablet) omeprazole 20 mg capsule,delayed 20 mg PO DAILY 08/16/19 05/12/22 release escitalopram oxalate 10 mg tablet 10 mg PO DAILY 05/12/22 05/12/22 isosorbide mononitrate 30 mg 30 mg PO DAILY 05/12/22 05/12/22 tablet,extended release 24 hr ticagrelor 90 mg tablet (Brilinta) 90 mg PO DAILY 05/12/22 05/12/22 Allergies Allergy/AdvReac Type Severity Reaction Status Date / Time amoxicillin [From Augmentin] Allergy Hives Verified 06/07/23 14:38 clavulanic acid Allergy Hives Verified 06/07/23 14:38 [From Augmentin] clopidogrel Allergy Hives Verified 06/07/23 14:38 Penicillins Allergy Hives Verified 06/07/23 14:38 prasugrel Allergy Hives Verified 06/07/23 14:38 Review of Systems Review of Systems: All systems reviewed & are unremarkable except as noted in HPI and below PMFSH Past Medical History Medical History Atrial fibrillation BPH loc w urin obs/LUTS Carotid artery stenosis Coronary artery disease GERD (gastroesophageal reflux disease) Hyperlipidemia Hypertension Osteoarthritis Sinusitis Surgical History Surgical History Aortic valve replaced Pacemaker Social History Social History Smoking status: Never smoker Alcohol intake: former Drinks per week: 1 Substance use: never Substance use type: does not use Gender identity (if verbalized by the patient): Male Sexual Orientation (if Verbalized by the Patient): Straight or Heterosexual Spiritual care concerns: No Exam Const: General: healthy appearing, no acute distress and alert Nutritional Appearance: well nourished Orientation/consciousness: patient oriented x3 Limitations: no limitations HENMT: Head: normal to inspection Eyes: Conjunctivae: conjunctivae normal Neck: Neck: normal visual inspection Chest: Chest palpation & inspection: normal inspection of the chest Resp: Effort & Inspection: normal respiratory effort Auscultation: clear to auscultation bilaterally Cardio: Rate: regular rate Rhythm: regular rhythm GI: GI Palp: Yes Soft to palpation Auscultation: normal bowel sounds : General: Yes bladder normal to palpation Back/Spine/Pelvis: Back: no CVA tenderness Skin: General skin exam: normal color Rashes: no rashes Wounds: no wounds Extrem: General: normal to inspection, no clubbing, cyanosis or edema and n
== END 2023-06-07 18:53 | disposition home or self-care (01) ==
PROVIDERS: Emergency Provider Emergency Medicine; PCP Internal Medicine
DX: K80.20 Calculus of gallbladder without cholecystitis without obstruction (principal); I48.91 Unspecified atrial fibrillation; I25.10 Atherosclerotic heart disease of native coronary artery without angina pectoris; E78.5 Hyperlipidemia, unspecified; I10 Essential (primary) hypertension; Z95.0 Presence of cardiac pacemaker; Z95.2 Presence of prosthetic heart valve
CPT/HCPCS: 36415; 71045; 71275; 80053; 83690; 83880; 84484; 85025; 85055; 85380; 85610; 85730; 93005; 96374; 96376; 99284; A9270; J2405; Q9967

== ENCOUNTER 2023-09-22 10:39 | Outpatient (CLI) | payer MEDICARE, OTHER, SELFPAY ==
--- NOTE | ~2023-09-22 | NM_ITS ---
EXAMINATION: NM hepatobiliary w pharm DATE: 09/22/2023 13:05 INDICATION: Chronic cholecystitis COMPARISON: None. TECHNIQUE: 6.1 mCi Tc-99m mebrofenin (Choletec) was administered intravenously. Scintigraphic images of the abdomen were obtained for one hour. 2 mcg sincalide (Kinevac) was administered by slow intrav enous infusion, and imaging was continued for 30 minutes. Gallbladder ejection fraction was calculate d by the technologist. FINDINGS: There is normal clearance of radiotracer from the blood pool. There is homogeneous tracer uptake by t he liver. Activity progresses to the gallbladder and bowel. The gallbladder ejection fraction (GBEF) is 35% (normal 10-90%, but most patient with gallbladder dysfunction have GBEF < 35% which does over lap with the normal range). IMPRESSION: 1. Gallbladder ejection fraction is at the lower range of normal. This could be normal but is also within the range of overlap with gallbladder dysfunction or chronic cholecystitis in the appropriate clinical setting. Reviewed, dictated and finalized at location A.
== END 2023-09-22 10:40 | disposition home or self-care (01) ==
LOC: CHSIMG 10:41
PROVIDERS: PCP Internal Medicine; Visit Provider Internal Medicine
DX: K82.8 Other specified diseases of gallbladder (principal)
CPT/HCPCS: 78227; A9537; J2805